=== PATIENT | male | born 1990 | race Two or more races ===

== ENCOUNTER → 2019-03-27 | Outpatient (CLI) | payer OTHER | END | disposition home or self-care (01) | LOC: RAD 14:57 | DX: M54.89 Other dorsalgia (principal); M54.2 Cervicalgia ==

== ENCOUNTER 2020-04-25 20:26 | Emergency (ER) | payer OTHER ==
[~2020-04-25] VITALS: Ht 180.3 cm; Wt 81.6 kg
== END 2020-04-25 22:48 | disposition home or self-care (01) ==
LOC: ER 20:26
DX: R51.9 Headache, unspecified (principal); I10 Essential (primary) hypertension